=== PATIENT | male | born 1995 | race Caucasian/White ===

== ENCOUNTER 2016-07-26 07:43 | Emergency (ER) | payer OTHER ==
[~2016-07-26] VITALS: Ht 177.8 cm; Wt 120.0 kg
[2016-07-26 07:45] VITALS: BP 135/86; PULSE 90; RESP 16; TEMP 99.6; O2SAT 97
[2016-07-26] MEDS ORDERED: DEXAMETHASONE SOD PHOS 20 MG/5 ML VIAL IM ONE (08:00)
[2016-07-26] MEDS ORDERED: KETOROLAC TROMETHAMINE 60 MG/2 ML (IM) VIAL IM ONE (08:00)
[2016-07-26] MEDS ORDERED: AUGM875T PO (08:10)
--- NOTE | 2016-07-26 08:11 | PD ---
HPI Chief Complaint: Cold / Flu Symptoms Time Seen by Provider: 07:54 Travel History International Travel<30 days: No Contact w/Intl Traveler<30days: No Traveled to known affect area: No History of Present Illness HPI Patient is a 21-year-old male who presents to emergency room with complaints of not feeling well. Patient reports that his whole family is sick at home, reports that his brother was initially sick with a URI, reports that over the past 3 days, his mother is also sick at home as well, he has had a postnasal drip with increased cough and congestion. Patient reports that when he coughs, he coughs up thick white phlegm. Patient reports increased pain to his left ear as well as sore throat. Patient reports headache with his symptoms as well. Patient has not taken any medications for relief of symptoms. Patient denies fevers or chills. Patient did not have influenza vaccination this year. PFSH Past Medical History ADD: Yes ADHD: Yes Diminished Hearing: No Herniated Disk: Yes Musculoskeletal: Yes (LOW BACK PAIN) Immunizations Current: Yes Influenza Vaccination: No ?: Not Past Surgical History Other Surgery: Yes Family History Family History: Negative Social History Alcohol Use: No Tobacco Use: Yes (e cig) Substance Use: No Allergies-Medications (Allergen,Severity, Reaction): Coded Allergies: Aspirin (Verified Allergy, Severe, UNKNOWN, 07/26/16) FATHER HAD ASTHMA ATTACKS AFTER TAKING IT Reported Meds & Prescriptions Reported Meds & Active Scripts Active Augmentin (Amoxicillin-Clavulanate) 875-125 mg Tab 875 Mg PO BID 10 Days not for use in CrCl <30 ml/min. Review of Systems General / Constitutional: No: Fever, Chills Eyes: No: Visual changes HENT: Positive: Headaches, Sore Throat, No: Neck Pain Cardiovascular: No: Chest Pain or Discomfort Respiratory: Positive: Cough, No: Shortness of Breath Gastrointestinal: No: Nausea, Vomiting, Abdominal Pain Genitourinary: No: Urgency, Frequency, Dysuria Musculoskeletal: No: Pain Skin: No Rash Neurologic: No: Weakness Psychiatric: No: Depression Endocrine: No: Polydipsia Hematologic/Lymphatic: No: Easy Bruising Physical Exam Narrative GENERAL: No acute distress, nontoxic SKIN: Warm and dry. HEAD: Atraumatic. Normocephalic. EYES:No injection or drainage. ENT: No nasal bleeding or discharge. Mucous membranes pink and moist. Patient with injected posterior pharynx. Patient with left-sided TM which is injected, right-sided TM with normal exam NECK: Trachea midline. No JVD. CARDIOVASCULAR: Regular rate and rhythm. No murmur appreciated. RESPIRATORY: No accessory muscle use. Clear to auscultation. Breath sounds equal bilaterally. GASTROINTESTINAL: Abdomen soft, non-tender, nondistended. MUSCULOSKELETAL: No obvious deformities. No clubbing. No cyanosis. No edema. NEUROLOGICAL: Awake and alert. Normal speech. Data Data Last Documented VS Vital Signs Date Time Temp Pulse Resp B/P Pulse Ox O2 Delivery O2 Flow Rate FiO2 07/26/16 08:59 18 07/26/16 07:45 99.6 90 135/86 97 Orders Group A Rapid Strep Screen (07/26/16 07:59) Chest, Pa & Lat (07/26/16 07:59) Dexamethasone Inj (Decadron Inj) (07/26/16 08:00) Ketorolac Inj (Toradol Inj) (07/26/16 08:00) Strep Culture (Group A) (07/26/16 08:05) Amoxicil-Clavulanate (Augmentin) (07/26/16 09:00) MDM Medical Decision Making Medical Screen Exam Complete: Yes Emergency Medical Condition: Yes Interpretation(s) Vital Signs Date Time Temp Pulse Resp B/P Pulse Ox O2 Delivery O2 Flow Rate FiO2 07/26/16 07:51 16 07/26/16 07:45 99.6 90 16 135/86 97 Differential Diagnosis Influenza, strep pharyngitis, otitis media, pneumonia, viral syndrome Narrative Course Patient is a 21-year-old male who presents to emergency room with complaints of 3 days of cough, congestion, sore throat and left-sided ear pain. Patient with multiple sick contacts at home including his brother and his mother. Patient reports that his father is currently being seen in the emergency room for similar symptoms. Patient with no recent travels or trips. Patient did not receive influenza vaccination this year. On evaluation, patient is nontoxic Vital Signs Date Time Temp Pulse Resp B/P Pulse Ox O2 Delivery O2 Flow Rate FiO2 07/26/16 07:51 16 07/26/16 07:45 99.6 90 16 135/86 97 Patient does appear to have left-sided otitis media with injected posterior pharynx -ultimately, patient will need to be treated for otitis media. Injected posterior pharynx could be secondary to viral syndrome - rapid strep was obtained. Patient with cough and congestion - x-ray of chest ordered to evaluate for possible pneumonia. Microbiology Date/Time Procedure Status Source Growth 07/26/16 08:05 Group A Streptococcus Screen ([facility]) - Final Complete Throat 07/26/16 08:05 Group A Streptococcus Screen Received Throat Pending Last Impressions Chest X-Ray 07/26/16 0752 Signed Impressions: Service Date/Time: Tuesday, July 26, 2016 08:25 - CONCLUSION: No acute disease. No significant change has occurred. Nakul Reaves MD VSS pt with otitis media and acute bronchitis, will start pt on antibiotics and have him follow up with pcp and return to ER as needed Diagnosis Primary Impression: Otitis media of left ear Qualified Code: H65.192 - Other acute nonsuppurative otitis media of left ear , recurrence not specified Additional Impression: Bronchitis Patient Instructions: General Instructions Departure Forms: Tests/Procedures, Work Release Enter return to work date: Jul 29, 2016 Additional Instructions: Please follow-up with your primary care doctor Return to ER as needed Drink plenty of fluids Return to ER if your symptoms worsen or progress Med/Other Pt SpecificInfo: Prescription(s) given Scripts Amoxicillin-Clavulanate (Augmentin)875-125 mg [id number] Mg PO BID 10 Days Ref 0 not for use in CrCl <30 ml/min. Prov:Adelaide Yeager DO 07/26/16 Disposition: 01 DISCHARGE HOME Condition: Stable Adelaide Yeager DO Jul 26, 2016 08:11
--- NOTE | 2016-07-26 08:44 | RADHPO ---
EXAM DATE/TIME: 07/26/2016 08:25 [facility] COMPARISON: CHEST PA & LAT, July 08, 2014, 22:58. INDICATIONS : Cough, fever, short of breath MEDICAL HISTORY : None. SURGICAL HISTORY : None. ENCOUNTER: Initial ACUITY: 3 days PAIN SCORE: 0/10 LOCATION: Bilateral chest FINDINGS: PA and lateral views of the chest demonstrate the lungs to be symmetrically aerated without evidence of mass, infiltrate or effusion. The cardiomediastinal contours are unremarkable. Osseous structure s are intact. CONCLUSION: No acute disease. No significant change has occurred. Nakul Reaves MD on July 26, 2016 at 8:42 Board Certified Radiologist. This report was verified electronically.
[2016-07-26 08:59] VITALS: RESP 18
[2016-07-26] MEDS ORDERED: AMOXICILLIN/CLAVULANATE K 875 MG TAB PO ONE (09:00)
== END 2016-07-26 09:17 | disposition home or self-care (01) ==
LOC: PHED 07:43
DX: H65.192 Other acute nonsuppurative otitis media, left ear (principal); J20.9 Acute bronchitis, unspecified
CPT/HCPCS: 71020; 87081; 87880; 96372; 99284; J1100; J1885

== ENCOUNTER 2016-11-24 07:46 | Emergency (ER) | payer OTHER ==
[~2016-11-24] VITALS: Ht 177.8 cm; Wt 120.0 kg
[~2016-11-24 07:46] MED LIST: AUGM875T PO
[2016-11-24 07:49] VITALS: BP 136/88; PULSE 117; RESP 17; TEMP 101.3; O2SAT 97
[2016-11-24 08:00] VITALS: BP 128/69; PULSE 108; RESP 18; TEMP 100; O2SAT 96
[2016-11-24] MEDS ORDERED: IBUP-232 PO (08:03)
[2016-11-24] MEDS ORDERED: SODIUM CHLOR 0.9% 1000 ML INJ 1,000 ML IV ONE ×2 (08:15)
[2016-11-24] MEDS ORDERED: IBUPROFEN 600 MG TAB PO ONE (08:15)
--- NOTE | 2016-11-24 08:25 | PD ---
HPI Chief Complaint: Abdominal Pain Time Seen by Provider: 08:04 Travel History International Travel<30 days: No Contact w/Intl Traveler<30days: No Traveled to known affect area: No History of Present Illness HPI Patient is a 21-year-old male who presents to emergency room with complaints of not feeling well for the past 4 days. Patient reports that 4 days ago, he has had sore throat, reports that he has been having fevers and chills with a temperature max of 101.0. Patient reports that he has been taking Tylenol and Motrin to help with his fevers. Reports that he has also had a productive cough with clear white mucous. Patient does admit to smoking cigarettes sometimes. Reports that this morning, he began to feel nauseous, reports that he had one episode of emesis. Patient reports that he had a cramping sensation to his abdomen, reports no abdominal pain at this time. Patient does arrive febrile with temperature of 101.3 he did not take any antipyretics prior to coming to the emergency room. Patient reports that his younger brother is sick with pharyngitis as well. No other sick contacts at home. Patient with no recent travels or trips. [facility] Past Medical History ADD: Yes ADHD: Yes Diminished Hearing: No Herniated Disk: Yes Musculoskeletal: Yes (LOW BACK PAIN) Immunizations Current: Yes Influenza Vaccination: No Past Surgical History Other Surgery: Yes Social History Alcohol Use: No Tobacco Use: Yes Substance Use: No Allergies-Medications (Allergen,Severity, Reaction): Coded Allergies: Aspirin (Verified Allergy, Severe, UNKNOWN, 11/24/16) FATHER HAD ASTHMA ATTACKS AFTER TAKING IT Reported Meds & Prescriptions Reported Meds & Active Scripts Active Augmentin (Amoxicillin-Clavulanate) 875-125 Mg Tab 1 Tab PO BID 10 Days Reported Ibuprofen 600 Mg Tab 600 Mg PO ONCE PRN Review of Systems General / Constitutional: Positive: Fever, Chills Eyes: No: Visual changes HENT: Positive: Sore Throat, No: Headaches, Rhinitis, Rhinorrhea, Nosebleed, Gingival Bleeding, Dental Difficulties, Ear Discharge, Earache Cardiovascular: No: Chest Pain or Discomfort Respiratory: Positive: Cough, No: Shortness of Breath Gastrointestinal: No: Nausea, Vomiting, Abdominal Pain Genitourinary: No: Dysuria Musculoskeletal: No: Pain Skin: No Rash Neurologic: No: Weakness Psychiatric: No: Depression Endocrine: No: Polydipsia Hematologic/Lymphatic: No: Easy Bruising Physical Exam Narrative GENERAL: Mild distress SKIN: Focused skin assessment warm/dry. HEAD: Atraumatic. Normocephalic. EYES: Pupils equal and round. No scleral icterus. No injection or drainage. ENT: No nasal bleeding or discharge. Mucous membranes pink and moist. Patient with white exudates to his right-sided posterior tonsils, patient does have mild edema to his right tonsils, No midline swelling. NO drooling on exam, tolerating his own secretions NECK: Trachea midline. No JVD. CARDIOVASCULAR: Tachycardic. No murmur appreciated. RESPIRATORY: No accessory muscle use. Clear to auscultation. Breath sounds equal bilaterally. GASTROINTESTINAL: Abdomen soft, non-tender, nondistended. Hepatic and splenic margins not palpable. MUSCULOSKELETAL: No obvious deformities. No clubbing. No cyanosis. No edema. NEUROLOGICAL: Awake and alert. No obvious cranial nerve deficits. Motor grossly within normal limits. Normal speech. PSYCHIATRIC: Appropriate mood and affect; insight and judgment normal. Data Data Last Documented VS Vital Signs Date Time Temp Pulse Resp B/P Pulse Ox O2 Delivery O2 Flow Rate FiO2 11/24/16 10:14 98.8 92 18 112/57 97 Room Air Orders Complete Blood Count With Diff (11/24/16 08:15) Comprehensive Metabolic Panel (11/24/16 08:15) Blood Culture (11/24/16 08:15) Group A Rapid Strep Screen (11/24/16 08:15) Chest, Single Ap (11/24/16 08:15) Sodium Chlor 0.9% 1000 Ml Inj (Ns 1000 M (11/24/16 08:15) Sodium Chlor 0.9% 1000 Ml Inj (Ns 1000 M (11/24/16 08:15) Ibuprofen (Motrin) (11/24/16 08:15) Ampicillin-Sulbactam Inj (Unasyn Inj) (11/24/16 08:30) Strep Culture (Group A) (11/24/16 08:29) Labs Laboratory Tests Test 11/24/16 08:30 White Blood Count 4.3 TH/MM3 Red Blood Count 5.33 MIL/MM3 Hemoglobin 14.9 GM/DL Hematocrit 43.6 % Mean Corpuscular Volume 81.9 FL Mean Corpuscular Hemoglobin 27.9 PG Mean Corpuscular Hemoglobin 34.1 % Concent Red Cell Distribution Width 12.1 % Platelet Count 140 TH/MM3 Mean Platelet Volume 8.5 FL Neutrophils (%) (Auto) 75.0 % Lymphocytes (%) (Auto) 11.5 % Monocytes (%) (Auto) 12.4 % Eosinophils (%) (Auto) 0.7 % Basophils (%) (Auto) 0.4 % Neutrophils # (Auto) 3.3 TH/MM3 Lymphocytes # (Auto) 0.5 TH/MM3 Monocytes # (Auto) 0.5 TH/MM3 Eosinophils # (Auto) 0.0 TH/MM3 Basophils # (Auto) 0.0 TH/MM3 CBC Comment DIFF FINAL Differential Comment Sodium Level 140 MEQ/L Potassium Level 3.7 MEQ/L Chloride Level 108 MEQ/L Carbon Dioxide Level 27.7 MEQ/L Anion Gap 4 MEQ/L Blood Urea Nitrogen 8 MG/DL Creatinine 1.00 MG/DL Estimat Glomerular Filtration 95 ML/MIN Rate Random Glucose 111 MG/DL Calcium Level 9.0 MG/DL Total Bilirubin 0.6 MG/DL Aspartate Amino Transf 45 U/L (AST/SGOT) Alanine Aminotransferase 99 U/L (ALT/SGPT) Alkaline Phosphatase 90 U/L Total Protein 7.7 GM/DL Albumin 4.2 GM/DL [facility] Medical Decision Making Medical Screen Exam Complete: Yes Emergency Medical Condition: Yes Interpretation(s) Vital Signs Date Time Temp Pulse Resp B/P Pulse Ox O2 Delivery O2 Flow Rate FiO2 11/24/16 08:00 100.0 108 18 128/69 96 Room Air 11/24/16 07:49 101.3 117 17 136/88 97 Differential Diagnosis Strep pharyngitis, pneumonia, viral syndrome, acute gastroenteritis Narrative Course Patient is a 21-year-old male who presents to emergency room with multiple complaints. Reports that he has had a sore throat for the past 4 days with fevers and chills, that he has since began to have cough with clear thick mucus secretions. Patient reports that this morning, he felt nauseous and had 1 episode of emesis, reports that his abdomen felt crampy at that time, reports no abdominal pain at this time. On exam, patient is tachycardic with a temperature of 101.3. He does have peritonsillar exudates on his right pharynx, patient with most likely strep pharyngitis. I did order a rapid strep as well as cultures of his throat. Because of his temperature and tachycardia, blood cultures was ordered. IV dose of Unasyn ordered. Plan to give patient IV fluids as well as IV antibiotics and monitor him. Patient with no abdominal pain this time, plan to perform serial abdominal exams. Laboratory Tests Test 11/24/16 08:30 White Blood Count 4.3 TH/MM3 (4.0-11.0) Red Blood Count 5.33 MIL/MM3 (4.50-5.90) Hemoglobin 14.9 GM/DL (13.0-17.0) Hematocrit 43.6 % (39.0-51.0) Mean Corpuscular Volume 81.9 FL (80.0-100.0) Mean Corpuscular Hemoglobin 27.9 PG (27.0-34.0) Mean Corpuscular Hemoglobin 34.1 % Concent (32.0-36.0) Red Cell Distribution Width 12.1 % (11.6-17.2) Platelet Count 140 TH/MM3 (150-450) Mean Platelet Volume 8.5 FL (7.0-11.0) Neutrophils (%) (Auto) 75.0 % (16.0-70.0) Lymphocytes (%) (Auto) 11.5 % (9.0-44.0) Monocytes (%) (Auto) 12.4 % (0.0-8.0) Eosinophils (%) (Auto) 0.7 % (0.0-4.0) Basophils (%) (Auto) 0.4 % (0.0-2.0) Neutrophils # (Auto) 3.3 TH/MM3 (1.8-7.7) Lymphocytes # (Auto) 0.5 TH/MM3 (1.0-4.8) Monocytes # (Auto) 0.5 TH/MM3 (0-0.9) Eosinophils # (Auto) 0.0 TH/MM3 (0-0.4) Basophils # (Auto) 0.0 TH/MM3 (0-0.2) CBC Comment DIFF FINAL Differential Comment Sodium Level 140 MEQ/L (136-145) Potassium Level 3.7 MEQ/L (3.5-5.1) Chloride Level 108 MEQ/L (98-107) Carbon Dioxide Level 27.7 MEQ/L (21.0-32.0) Anion Gap 4 MEQ/L (5-15) Blood Urea Nitrogen 8 MG/DL (7-18) Creatinine 1.00 MG/DL (0.60-1.30) Estimat Glomerular Filtration 95 ML/MIN (>89) Rate Random Glucose 111 MG/DL (74-106) Calcium Level 9.0 MG/DL (8.5-10.1) Total Bilirubin 0.6 MG/DL (0.2-1.0) Aspartate Amino Transf 45 U/L (15-39) (AST/SGOT) Alanine Aminotransferase 99 U/L (9-52) (ALT/SGPT) Alkaline Phosphatase 90 U/L (45-117) Total Protein 7.7 GM/DL (6.4-8.2) Albumin 4.2 GM/DL (3.4-5.0) Last Impressions Chest X-Ray 11/24/16 0815 Signed Impressions: Service Date/Time: Thursday, November 24, 2016 08:26 - CONCLUSION: No acute cardiopulmonary abnormality is identified. Octavio Tam MD Microbiology Date/Time Procedure Status Source Growth 11/24/16 08:29 Group A Streptococcus Screen ([place]) - Final Complete Throat 11/24/16 08:29 Group A Streptococcus Screen Received Throat Pending 11/24/16 08:30 Aerobic Blood Culture Received Blood Peripheral Pending 11/24/16 08:30 Anaerobic Blood Culture Received Blood Peripheral Pending 11/24/16 08:36 Aerobic Blood Culture Received Blood Peripheral Pending 11/24/16 08:36 Anaerobic Blood Culture Received Blood Peripheral Pending Patient reevaluated, patient is feeling much better at this time. Labs reviewed , white blood cell count is 4.3, hemoglobin 14.9, hematocrit 43.6, platelets 140 , rapid strep negative, throat cultures are pending, x-ray of the chest does not show any signs of infection. DC VSS. Abdomen is soft, nontender, nondistended, no peritoneal signs. Patient with no nausea or vomiting while emergency room. Signs and symptoms of when to return to the emergency room was reviewed patient in detail. Patient will follow-up with all cultures from today. Diagnosis Primary Impression: Pharyngitis Qualified Code: J02.9 - Pharyngitis, unspecified etiology Patient Instructions: General Instructions Departure Forms: Tests/Procedures, Work Release Enter return to work date: Nov 27, 2016 Additional Instructions: Please follow-up with your primary care doctor in 1-2 days Please follow-up with all cultures from today Returns to emergency room if symptoms worsen or progress Please take all antibiotics as prescribed Return to the emergency room as needed Med/Other Pt SpecificInfo: Prescription(s) given Scripts Amoxicillin-Clavulanate (Augmentin)875-125 Mg Tab1 Tab PO BID 10 Days Ref 0 Prov:Adelaide Yeager DO 11/24/16 Disposition: 01 DISCHARGE HOME Condition: Stable Adelaide Yeager DO November 24, 2016 08:25
[2016-11-24] MEDS ORDERED: AMPICILLIN-SULBACTAM INJ 3 GM in SODIUM CHLORIDE 0.9% INJ 100 ML IV ONE (08:30)
[2016-11-24 08:46] LABS: AUTOMATED NEUTROPHIL # 3.3 TH/MM3 (1.8-7.7); BASOPHIL % 0.4 % (0.0-2.0); EOSINOPHIL % 0.7 % (0.0-4.0); HEMATOCRIT 43.6 % (39.0-51.0); HEMO FLAGS DIFF FINAL; LYMPH % 11.5 % (9.0-44.0); LYMPHOCYTE # 0.5 TH/MM3 (1.0-4.8); MEAN CELL VOLUME 81.9 FL (80.0-100.0); MEAN CORPUSCULAR HEMOGLOBIN 27.9 PG (27.0-34.0); MEAN CORPUSCULAR HGB CONC 34.1 % (32.0-36.0); MONO % 12.4 % (0.0-8.0); PLATELET COUNT 140 TH/MM3 (150-450); RED BLOOD COUNT 5.33 MIL/MM3 (4.50-5.90); RED CELL DISTRIBUTION WIDTH 12.1 % (11.6-17.2); WHITE BLOOD COUNT 4.3 TH/MM3 (4.0-11.0)
[2016-11-24 08:54] LABS: CHLORIDE 108 MEQ/L (98-107); POTASSIUM 3.7 MEQ/L (3.5-5.1); SODIUM (NA) 140 MEQ/L (136-145)
[2016-11-24 08:57] LABS: ANION GAP 4 MEQ/L (5-15); BICARBONATE 27.7 MEQ/L (21.0-32.0)
[2016-11-24 08:58] LABS: BLOOD UREA NITROGEN 8 MG/DL (7-18)
[2016-11-24 09:00] LABS: ALT (GPT) 99 U/L (9-52); AST (GOT) 45 U/L (15-39)
[2016-11-24 09:01] LABS: GLOMERULAR FILTRATION RATE 95 ML/MIN (>89)
[2016-11-24 09:02] LABS: TOTAL BILIRUBIN ADULT 0.6 MG/DL (0.2-1.0)
[2016-11-24 09:03] LABS: ALKALINE PHOSPHATASE 90 U/L (45-117)
--- NOTE | 2016-11-24 09:03 | RADHPO ---
EXAM DATE/TIME: 11/24/2016 08:26 [facility] COMPARISON: CHEST PA & LAT, July 26, 2016, 8:25. INDICATIONS : Cough, short of breath, chest pain. MEDICAL HISTORY : None. SURGICAL HISTORY : None. ENCOUNTER: Initial ACUITY: 4 - 6 days PAIN SCORE: 6/10 LOCATION: Bilateral chest FINDINGS: Portable AP view of the chest demonstrates a normal-sized cardiac silhouette. No effusion, consolidat ion, or pneumothorax is visualized. The bones and soft tissues demonstrate no acute abnormality. CONCLUSION: No acute cardiopulmonary abnormality is identified. Octavio Tam MD on November 24, 2016 at 9:01 Board Certified Radiologist. This report was verified electronically.
[2016-11-24 10:14] VITALS: BP 112/57; PULSE 92; RESP 18; TEMP 98.8; O2SAT 97
[2016-11-24] MEDS ORDERED: AUGM875T3 PO (10:16)
== END 2016-11-24 10:55 | disposition home or self-care (01) ==
LOC: PHED 07:46
DX: J02.9 Acute pharyngitis, unspecified (principal); R05 Cough; R50.9 Fever, unspecified; R11.2 Nausea with vomiting, unspecified; R00.0 Tachycardia, unspecified
CPT/HCPCS: 71010; 80053; 85025; 87040; 87081; 87880; 96361; 96365; 99284; J0295; J7030

== ENCOUNTER 2017-01-12 03:10 | Emergency (ER) | payer OTHER ==
[~2017-01-12] VITALS: Ht 177.8 cm; Wt 119.0 kg
[~2017-01-12 03:10] MED LIST changes: -AUGM875T PO; +AUGM875T3 PO; +IBUP-232 PO
[2017-01-12 03:13] VITALS: BP 133/95; PULSE 93; RESP 16; TEMP 98; O2SAT 97
[2017-01-12 03:24] VITALS: RESP 20
--- NOTE | 2017-01-12 03:31 | PD ---
HPI Chief Complaint: Head Injury Time Seen by Provider: 03:19 Travel History International Travel<30 days: No Contact w/Intl Traveler<30days: No Traveled to known affect area: No History of Present Illness HPI This is a 21-year-old male who presents to the emergency department 2 hours ago having had his curtain ceasar fall and the ball from the end of his curtain ceasar hitting his head on the right side of his head. He had no loss of consciousness , he is not vomited, he has no difficulty walking or talking and has had no confusion. He remembers the accident. He is concerned because he still has a headache at the location of where he was hit. The pain is mild, constant with no other associated symptoms. He is not on any blood thinners. He has no other injuries. [facility] Past Medical History ADD: Yes ADHD: Yes Diminished Hearing: No Herniated Disk: Yes Musculoskeletal: Yes (LOW BACK PAIN) Immunizations Current: Yes Past Surgical History Other Surgery: Yes Social History Alcohol Use: No Tobacco Use: Yes Substance Use: No Allergies-Medications (Allergen,Severity, Reaction): Coded Allergies: Aspirin (Verified Allergy, Severe, UNKNOWN, 01/12/17) FATHER HAD ASTHMA ATTACKS AFTER TAKING IT Reported Meds & Prescriptions Reported Meds & Active Scripts Active Review of Systems Except as stated in HPI: all other systems reviewed are Neg Physical Exam Narrative GENERAL:Well appearing, no acute distress SKIN: Focused skin assessment warm and dry. HEAD: Atraumatic. Normocephalic. EYES: Pupils equal and round. No injection or drainage. ENT: Moist mucous membranes NECK: Trachea midline. CARDIOVASCULAR: Regular rate and rhythm. No murmur appreciated. RESPIRATORY: Clear to auscultation. Breath sounds equal bilaterally. GASTROINTESTINAL: Abdomen soft, non-tender, nondistended. MUSCULOSKELETAL: No obvious deformities. NEUROLOGICAL: Awake and alert. No obvious cranial nerve deficits. No dysarthria or aphasia. No upper or lower extremity drift. No upper extremity ataxia. Visual [place] intact. PSYCHIATRIC: Appropriate mood and affect; insight and judgment normal. Data Data Last Documented VS Vital Signs Date Time Temp Pulse Resp B/P Pulse Ox O2 Delivery O2 Flow Rate FiO2 01/12/17 03:27 Room Air 01/12/17 03:24 20 01/12/17 03:13 98.0 93 133/95 97 MDM Medical Decision Making Medical Screen Exam Complete: Yes Emergency Medical Condition: Yes Differential Diagnosis Closed head injury, concussion, intracranial hemorrhage Narrative Course This is a 21-year-old male who presents to the emergency department having been hit in the head with a ball at the end of his curtain ceasar. He has no evident hematoma on exam. He had no loss of consciousness, vomiting and otherwise his [place] head CT rules are negative. I think the risk of radiation in this 21- year-old patient would outweigh the deficits and I think the likelihood of an intracranial injury is exceedingly low. Patient will be given Tylenol and was given return instructions. Diagnosis Primary Impression: Head contusion Qualified Code: S00.93XA - Contusion of head, unspecified part of head, initial encounter Patient Instructions: General Instructions Additional Instructions: Return to the emergency department if you develop trouble walking or talking, vomiting, numbness, weakness, or severe headache. Follow up with your primary care physician in one week if you are not back to your normal self. Med/Other Pt SpecificInfo: No Change to Meds Disposition: 01 DISCHARGE HOME Condition: Stable Jackelyn Sanchez MD Jan 12, 2017 03:31
[2017-01-12] MEDS ORDERED: ACETAMINOPHEN 500 MG CPLT PO ONE (03:45)
== END 2017-01-12 04:02 | disposition home or self-care (01) ==
LOC: PHED 03:10
DX: S00.93XA Contusion of unspecified part of head, initial encounter (principal); W20.8XXA Other cause of strike by thrown, projected or falling object, initial encounter; Z72.0 Tobacco use
CPT/HCPCS: 99283

== ENCOUNTER 2017-05-31 16:46 | Emergency (ER) | payer SELFPAY ==
[~2017-05-31] VITALS: Ht 177.8 cm; Wt 119.0 kg
[2017-05-31 17:13] VITALS: BP 137/67; PULSE 95; RESP 17; TEMP 99.1; O2SAT 97
[2017-05-31] MEDS ORDERED: BACT800T5 PO (18:33)
--- NOTE | 2017-05-31 18:34 | PD ---
HPI Chief Complaint: Skin Problem Time Seen by Provider: 18:14 Travel History International Travel<30 days: No Contact w/Intl Traveler<30days: No Traveled to known affect area: No History of Present Illness HPI 22-year-old male here with a painful red lump to his left thigh 2 days. Patient thought the area was an ingrown hair but has become increasingly more painful last several days. He denies fever or chills. Symptom severity is mild. No aggravating or alleviating factors. PFSH Past Medical History ADD: Yes ADHD: Yes Diminished Hearing: No Herniated Disk: Yes Musculoskeletal: Yes (LOW BACK PAIN) Immunizations Current: Yes Past Surgical History Other Surgery: Yes Social History Alcohol Use: No Tobacco Use: Yes Substance Use: No Allergies-Medications (Allergen,Severity, Reaction): Coded Allergies: aspirin (Unverified Allergy, Severe, UNKNOWN, 05/31/17) FATHER HAD ASTHMA ATTACKS AFTER TAKING IT Reported Meds & Prescriptions Reported Meds & Active Scripts Active Review of Systems Except as stated in HPI: all other systems reviewed are Neg Physical Exam Narrative GENERAL: Alert male. Well-appearing. SKIN: Warm and dry. 2 CM area of erythema and induration. No fluctuance. Area has a central scab with no drainage. No surrounding cellulitis or lymphangitis CARDIOVASCULAR: Regular rate and rhythm without murmurs, gallops, or rubs. RESPIRATORY: Breath sounds equal bilaterally. No accessory muscle use. GASTROINTESTINAL: Abdomen soft, non-tender, nondistended. MUSCULOSKELETAL: No cyanosis, or edema. Data Data Last Documented VS Vital Signs Date Time Temp Pulse Resp B/P (MAP) Pulse Ox O2 Delivery O2 Flow Rate FiO2 05/31/17 17:13 99.1 95 17 137/67 (90) 97 MDM Medical Decision Making Medical Screen Exam Complete: Yes Emergency Medical Condition: Yes Differential Diagnosis Abscess, cellulitis, folliculitis Narrative Course 22-year-old male with early abscess to the left thigh. The area is indurated. There is no fluctuance. Incision and drainage already at this time. Patient be put on antibiotics instructed to apply: Warm compresses follow-up with his primary doctor return for I&D Diagnosis Primary Impression: Abscess Referrals: Primary Care Physician Additional Instructions: Apply warm compresses to the area. Take [id number] Tylenol or Motrin as needed for pain. Follow-up with her primary doctor. Scripts Sulfamethoxazole-Trimethoprim (Bactrim DS) 800-160 Mg Tab 1 TAB PO BID for Infection, #20 TAB 0 Refills Prov: Andressa Haynes 05/31/17 Disposition: 01 DISCHARGE HOME Condition: Stable Andressa Haynes May 31, 2017 18:34
== END 2017-05-31 18:48 | disposition home or self-care (01) ==
LOC: PHED 16:46 → PHEFT 18:48
DX: L02.416 Cutaneous abscess of left lower limb (principal); Z72.0 Tobacco use
CPT/HCPCS: 99283

== ENCOUNTER 2017-06-02 00:27 | Emergency (ER) | payer SELFPAY ==
[~2017-06-02] VITALS: Ht 177.8 cm; Wt 119.1 kg
[~2017-06-02 00:27] MED LIST changes: -AUGM875T3 PO; +BACT800T5 PO; -IBUP-232 PO
[2017-06-02 00:34] VITALS: BP 143/70; PULSE 104; RESP 16; TEMP 98.9; O2SAT 98
--- NOTE | 2017-06-02 01:13 | PD ---
HPI Chief Complaint: Skin Problem Time Seen by Provider: 00:43 Travel History International Travel<30 days: No Contact w/Intl Traveler<30days: No Traveled to known affect area: No History of Present Illness HPI The patient is a 22-year-old male that had an abscess that formed about 4 days ago. He was seen yesterday and was put on Bactrim DS. He did not fill the prescription and comes in today for a recheck. He states the swelling has gone down slightly. His abscess was not drained yesterday. PFS Past Medical History ADD: Yes ADHD: Yes Diminished Hearing: No Herniated Disk: Yes Musculoskeletal: Yes (LOW BACK PAIN) Immunizations Current: Yes Past Surgical History Other Surgery: Yes Social History Alcohol Use: No Tobacco Use: Yes (ONE PPD) Substance Use: No Allergies-Medications (Allergen,Severity, Reaction): Coded Allergies: aspirin (Unverified Allergy, Severe, UNKNOWN, 06/02/17) FATHER HAD ASTHMA ATTACKS AFTER TAKING IT Reported Meds & Prescriptions Reported Meds & Active Scripts Active Bactrim DS (Sulfamethoxazole-Trimethoprim) 800-160 Mg Tab 1 Tab PO BID Review of Systems Except as stated in HPI: all other systems reviewed are Neg Physical Exam Narrative GENERAL: Well-nourished, obese patient that complains of pain in his left medial 5 from the abscess/cellulitic area. His vital signs show heart rate of 104 but otherwise normal. SKIN: Focused skin assessment warm/dry. There is a 2 cm diameter indurated area without any fluctuance. There is a 12 cm cellulitic area surrounding the indurated abscess. No inguinal lymphadenopathy is present and there is no lymphadenitis. HEAD: Normocephalic. EYES: No scleral icterus. No injection or drainage. NECK: Supple, trachea midline. No JVD or lymphadenopathy. CARDIOVASCULAR: Regular rate and rhythm without murmurs, gallops, or rubs. RESPIRATORY: Breath sounds equal bilaterally. No accessory muscle use. GASTROINTESTINAL: Abdomen soft, non-tender, nondistended. MUSCULOSKELETAL: No cyanosis, or edema. BACK: Nontender without obvious deformity. No CVA tenderness. Data Data Last Documented VS Vital Signs Date Time Temp Pulse Resp B/P (MAP) Pulse Ox O2 Delivery O2 Flow Rate FiO2 06/02/17 00:34 98.9 104 16 143/70 (94) 98 MDM Medical Decision Making Medical Screen Exam Complete: Yes Emergency Medical Condition: Yes Medical Record Reviewed: Yes Differential Diagnosis Abscess, cellulitis, lymphadenitis, adenopathy Narrative Course The patient has an early abscess with cellulitis. Procedures Procedure Narrative A field block was done with 1% lidocaine. A 1 cm incision was made and only a small amount of pus was recovered. The wound was explored under bloodless dissection with a hemostat which produced only a small amount of additional pus. The patient tolerated the procedure well. Diagnosis Primary Impression: Encounter for incision and drainage procedure Additional Impressions: Abscess of left thigh Cellulitis of left thigh Additional Instructions: Most of the infection is interspersed in the tissues were it can be killed by an antibiotic. There was very little pus in the abscess cavity. Use a heating pad on its lowest setting an interposed a towel between your skin and the pad. This is to avoid olmstead. Warmth is useful but hot does not help anymore. Med/Other Pt SpecificInfo: No Change to Meds Disposition: 01 DISCHARGE HOME Condition: Stable Ortiz Hernandez MD Jun 02, 2017 01:13
[2017-06-02] MEDS ORDERED: SULFAMETHOXAZOLE-TRIMETHOPRIM DS 800-160 MG TAB PO ONE (01:15)
== END 2017-06-02 01:34 | disposition home or self-care (01) ==
LOC: PHED 00:27
DX: L02.416 Cutaneous abscess of left lower limb (principal); L03.116 Cellulitis of left lower limb; Z72.0 Tobacco use
CPT/HCPCS: 10060

== ENCOUNTER 2017-06-03 14:25 | Emergency (ER) | payer SELFPAY ==
[2017-06-03 14:35] VITALS: BP 136/72; PULSE 90; RESP 18; TEMP 98.6; O2SAT 95
--- NOTE | 2017-06-03 14:48 | PD ---
HPI Chief Complaint: Skin Problem Time Seen by Provider: 14:39 Travel History International Travel<30 days: No Contact w/Intl Traveler<30days: No Traveled to known affect area: No History of Present Illness HPI 22-year-old male previously seen for I&D of abscess in the left medial thigh 2 days ago. Patient states his feeling better but continues to drain is having trouble maintaining a bandage to the area. Patient Is on Bactrim DS 7 days. Pain is minimal. Patient is allergic to aspirin. [facility] Past Medical History ADD: Yes ADHD: Yes Diminished Hearing: No Herniated Disk: Yes Musculoskeletal: Yes (LOW BACK PAIN) Immunizations Current: Yes Past Surgical History Other Surgery: Yes Social History Alcohol Use: No Tobacco Use: Yes (ONE PPD) Substance Use: No Allergies-Medications (Allergen,Severity, Reaction): Coded Allergies: aspirin (Unverified Allergy, Severe, UNKNOWN, 06/03/17) FATHER HAD ASTHMA ATTACKS AFTER TAKING IT Reported Meds & Prescriptions Reported Meds & Active Scripts Active Bactrim DS (Sulfamethoxazole-Trimethoprim) 800-160 Mg Tab 1 Tab PO BID Review of Systems Except as stated in HPI: all other systems reviewed are Neg General / Constitutional: No: Fever Eyes: No: Visual changes HENT: No: Headaches Cardiovascular: No: Chest Pain or Discomfort Respiratory: No: Shortness of Breath Gastrointestinal: No: Abdominal Pain Genitourinary: No: Dysuria Musculoskeletal: No: Pain Skin: No Rash Neurologic: No: Weakness Psychiatric: No: Depression Endocrine: No: Polydipsia Hematologic/Lymphatic: No: Easy Bruising Physical Exam Narrative GENERAL: Patient is no acute distress. SKIN: Warm and dry. Normal color. Normal turgor. Patient has open incision to the left middle medial thigh with improved cellulitis. There is minimal drainage currently. He appears to be healing well. HEAD: Atraumatic. Normocephalic. EYES: Pupils equal and round. No scleral icterus. No injection or drainage. ENT: No nasal bleeding or discharge. Mucous membranes pink and moist. Pharynx is clear. Airway is patent. NECK: Trachea midline. Supple and nontender. CARDIOVASCULAR: Regular rate and rhythm. RESPIRATORY: No accessory muscle use. Clear to auscultation. Breath sounds equal bilaterally. MUSCULOSKELETAL: Extremities without clubbing, cyanosis, or edema. No obvious deformities. NEUROLOGICAL: Awake and alert. No obvious cranial nerve deficits. Motor grossly within normal limits. Five out of 5 muscle strength in the arms and legs. Normal speech. PSYCHIATRIC: Appropriate mood and affect; insight and judgment normal. Data Data Last Documented VS Vital Signs Date Time Temp Pulse Resp B/P (MAP) Pulse Ox O2 Delivery O2 Flow Rate FiO2 06/03/17 14:35 98.6 90 18 136/72 (93) 95 Orders Orders Ed Discharge Order (06/03/17 14:48) MDM Medical Decision Making Medical Screen Exam Complete: Yes Emergency Medical Condition: Yes Medical Record Reviewed: Yes Differential Diagnosis Left inner thigh abscess. Wound check. Dressing change. Narrative Course Wound is inspected and found to be improved. Dressing was replaced. Wound care discussed. Diagnosis Primary Impression: Abscess of left leg Additional Impression: Encounter for wound re-check Referrals: [facility] Patient Instructions: Abscess Follow-up (ED), General Instructions Additional Instructions: Wound is inspected and found to be improved. Dressing was replaced. Wound care discussed. Med/Other Pt SpecificInfo: No Change to Meds, Wound Care Disposition: 01 DISCHARGE HOME Condition: Stable Enzo Castillo Jun 03, 2017 14:48
== END 2017-06-03 15:01 | disposition home or self-care (01) ==
LOC: PHEFT 14:25
DX: L02.416 Cutaneous abscess of left lower limb (principal); Z48.00 Encounter for change or removal of nonsurgical wound dressing
CPT/HCPCS: 99281

== ENCOUNTER 2017-12-20 09:43 | Emergency (ER) | payer SELFPAY ==
[~2017-12-20] VITALS: Ht 177.8 cm; Wt 119.5 kg
[2017-12-20 09:50] VITALS: BP 139/78; PULSE 88; RESP 16; TEMP 98.1; O2SAT 97
--- NOTE | 2017-12-20 11:14 | PD ---
HPI Chief Complaint: Injury Time Seen by Provider: 10:08 Travel History International Travel<30 days: No Contact w/Intl Traveler<30days: No Traveled to known affect area: No History of Present Illness HPI This is a 22-year-old male with left arm pain after he tripped and fell from a standing position prior to arrival. He reports he fell onto the left arm striking the forearm on a toilet. There was no head injury loss of consciousness. He is not anticoagulated. He has no other injuries. He reports normal sensation and strength within the arm. Pain is localized to the mid forearm which is throbbing and nonradiating. [facility] Past Medical History ADD: Yes ADHD: Yes Diminished Hearing: No Herniated Disk: Yes Musculoskeletal: Yes (LOW BACK PAIN) Immunizations Current: Yes Influenza Vaccination: No ?: Not Past Surgical History Other Surgery: Yes Social History Alcohol Use: Yes Tobacco Use: Yes (ONE PPD) Substance Use: No Allergies-Medications (Allergen,Severity, Reaction): Coded Allergies: aspirin (Unverified Allergy, Severe, UNKNOWN, 12/20/17) FATHER HAD ASTHMA ATTACKS AFTER TAKING IT Reported Meds & Prescriptions Reported Meds & Active Scripts Active No Active Prescriptions or Reported Medications Review of Systems Except as stated in HPI: all other systems reviewed are Neg General / Constitutional: No: Fever Eyes: No: Visual changes HENT: No: Headaches Cardiovascular: No: Chest Pain or Discomfort Respiratory: No: Shortness of Breath Gastrointestinal: No: Abdominal Pain Genitourinary: No: Dysuria Physical Exam Narrative GENERAL: Alert and well-appearing 22-year-old male SKIN: Warm and dry. HEAD: Normocephalic. EYES: No injection or drainage. NECK: Supple, trachea midline. No midline spine tenderness CARDIOVASCULAR: Regular rate and rhythm without murmurs, gallops, or rubs. RESPIRATORY: Breath sounds equal bilaterally. No accessory muscle use. GASTROINTESTINAL: Abdomen soft, non-tender, nondistended. MUSCULOSKELETAL: No cyanosis, or edema. Left arm: +TTP mid forearm. No deformity. Palpable radial pulse. The shoulder, elbow, wrist are nontender. Normal range of motion. Sensation intact. Cap refill intact. BACK: Nontender without obvious deformity. No CVA tenderness. Data Data Last Documented VS Vital Signs Date Time Temp Pulse Resp B/P (MAP) Pulse Ox O2 Delivery O2 Flow Rate FiO2 12/20/17 09:50 98.1 88 16 139/78 (98) 97 Orders Orders Forearm (2vws) (12/20/17 ) Ed Discharge Order (12/20/17 11:51) MDM Medical Decision Making Medical Screen Exam Complete: Yes Emergency Medical Condition: Yes Differential Diagnosis Contusion, fracture, sprain Narrative Course 22-year-old male with contusion to the left forearm. The extremity is neurovascularly intact. x-ray is negative for fracture. Diagnosis Primary Impression: Contusion of left arm Qualified Codes: S40.022A - Contusion of left upper arm, initial encounter Referrals: Primary Care Physician Additional Instructions: Tylenol or ibuprofen as needed for pain. Follow-up with her primary doctor Scripts No Active Prescriptions or Reported Meds Disposition: 01 DISCHARGE HOME Condition: Stable Andressa Haynes Dec 20, 2017 11:14
--- NOTE | 2017-12-20 11:39 | RADRPT ---
EXAM DATE: 12/20/2017 10:44 AM EDT AGE/SEX: 22 years / Male INDICATIONS: Fell complains of left distal forearm pain CLINICAL DATA: This is the patient's initial encounter. Patient reports that signs and symptoms have been present for 1 day and indicates a pain score of 5/10. MEDICAL/SURGICAL HISTORY: None. None. COMPARISON: No prior exams available for comparison. FINDINGS: Bony structures are intact and in normal alignment. Osseous density is normal. Soft tissues are unre markable. No radiopaque foreign bodies seen. CONCLUSION: 1. No acute fracture or dislocation. Electronically signed by: Bryant Tam MD 12/20/2017 11:37 AM EDT
== END 2017-12-20 11:56 | disposition home or self-care (01) ==
LOC: PHEFT 09:43
DX: S40.022A Contusion of left upper arm, initial encounter (principal); F90.9 Attention-deficit hyperactivity disorder, unspecified type; F17.210 Nicotine dependence, cigarettes, uncomplicated; W01.198A Fall on same level from slipping, tripping and stumbling with subsequent striking against other object, initial encounter; Y92.002 Bathroom of unspecified non-institutional (private) residence as the place of occurrence of the external cause
CPT/HCPCS: 73090; 99283